=== PATIENT | female | born 1985 | race African-American/Black ===

== ENCOUNTER 2018-07-08 19:27 | Emergency (ER) | payer MEDICAID ==
[~2018-07-08] VITALS: Ht 180.3 cm; Wt 86.2 kg
[2018-07-08 19:45] VITALS: BP 127/82
[2018-07-09] MEDS ORDERED: IBUPROFEN 600 MG TAB PO ONE (00:15)
[2018-07-09] MEDS ORDERED: HYDROcodone-ACET 5/325MG TAB PO ONE (00:15)
== END 2018-07-09 00:23 | disposition home or self-care (01) ==
LOC: ER 19:27
DX: S90.112A Contusion of left great toe without damage to nail, initial encounter (principal); W01.0XXA Fall on same level from slipping, tripping and stumbling without subsequent striking against object, initial encounter; Y93.89 Activity, other specified; Y92.89 Other specified places as the place of occurrence of the external cause; Y99.8 Other external cause status
CPT/HCPCS: 73630

== ENCOUNTER 2018-08-21 00:44 | Emergency (ER) | payer MEDICAID ==
[~2018-08-21] VITALS: Ht 170.2 cm; Wt 79.4 kg
[2018-08-21 02:51] LABS: Basophils # (auto) 0 uL; Basophils % (auto) 0.5 % (0.0-2.0); Eosinophils # (auto) 0.3 uL; Hematocrit 36.4 % (36.0-46.0); Lymphocytes # (auto) 4.2 uL; Lymphocytes % (auto) 52.3 % (10.0-50.0); Mean Corpuscular Hemoglobin 28.5 pg (28.0-32.0); Mean Corpuscular Volume 86.2 fL (80.0-100.0); Monocytes # (auto) 0.5 uL; Monocytes % (auto) 6.6 % (0.0-12.0); Neutrophils % (auto) 36.6 % (37.0-80.0); Platelet Count (auto) 290 10^3/uL (140-450); Red Blood Cells 4.23 10^6/uL (4.0-5.20); Red Cell Distribution Width 16.4 % (11.8-14.3); White Blood Cell 8.1 10^3/uL (4.4-10.8)
[2018-08-21 03:09] LABS: Albumin 3.3 g/dL (3.4-5.0); Calcium 8.4 mg/dL (8.5-10.1); Potassium 3.7 mmol/L (3.5-5.1)
[2018-08-21 03:11] LABS: BUN/Creatinine Ratio 10.2; Bilirubin, Total 0.1 mg/dL (0.2-1.0); Total Protein 7.9 g/dL (6.4-8.2)
[2018-08-21 04:57] LABS: Urine Bacteria FEW /hpf (None Seen); Urine Blood TRACE /uL (Negative); Urine Mucus FEW (None Seen); Urine Specific Gravity 1.032 (1.001-1.035); Urine WBC 10 /hpf (0 - 5)
[2018-08-21 05:55] VITALS: BP 108/83
== END 2018-08-21 06:10 | disposition left against medical advice (07) ==
LOC: ER 00:46
DX: R10.9 Unspecified abdominal pain (principal); Z53.21 Procedure and treatment not carried out due to patient leaving prior to being seen by health care provider
CPT/HCPCS: 36415; 80053; 81001; 81025; 84702; 85025

== ENCOUNTER 2018-10-05 20:06 | Emergency (ER) | payer MEDICAID ==
[~2018-10-05] VITALS: Ht 170.2 cm; Wt 104.3 kg
[2018-10-05 23:55] VITALS: BP 107/69
[2018-10-06] MEDS ORDERED: cefTRIAXone SOD 1,000 MG VL IM ONE (00:30)
== END 2018-10-06 01:34 | disposition home or self-care (01) ==
LOC: ER 20:06
DX: N61.1 Abscess of the breast and nipple (principal)
CPT/HCPCS: 10060; 96372; 99283; C1887; J0696

== ENCOUNTER 2018-10-07 00:34 | Emergency (ER) | payer MEDICAID ==
[~2018-10-07] VITALS: Ht 170.2 cm; Wt 99.8 kg
[2018-10-07 01:06] VITALS: BP 110/64
== END 2018-10-07 04:48 | disposition left against medical advice (07) ==
LOC: ER 00:37
DX: Z48.01 Encounter for change or removal of surgical wound dressing (principal); Z53.21 Procedure and treatment not carried out due to patient leaving prior to being seen by health care provider

== ENCOUNTER 2018-10-12 01:51 | Emergency (ER) | payer SELFPAY ==
[~2018-10-12] VITALS: Ht 170.2 cm; Wt 113.4 kg
[2018-10-12] MEDS ORDERED: cefTRIAXone SOD 1,000 MG VL IM ONE (04:00)
[2018-10-12] MEDS ORDERED: DexAMETHasone SOD PHOS 10MG/1ML VIAL INJ IM ONE (04:00)
[2018-10-12 04:07] VITALS: BP 105/77
== END 2018-10-12 04:38 | disposition home or self-care (01) ==
LOC: ER 01:58
DX: N61.1 Abscess of the breast and nipple (principal)
CPT/HCPCS: 96372; 99283; J0696; J1100

== ENCOUNTER 2019-12-16 22:55 | Inpatient (IN) | payer MEDICAID, OTHER ==
[~2019-12-16] VITALS: Ht 170.2 cm; Wt 106.0 kg
[2019-12-16 23:30] LABS: Basophils # (auto) 0.1 10 ^3/uL (0-0.2); Basophils % (auto) 0.7 % (0.0-2.0); Eosinophils # (auto) 0.3 10 ^3/uL (0-0.8); Eosinophils % (auto) 2.7 % (0.0-7.0); Hematocrit 39.1 % (36.0-46.0); Hemoglobin 12.6 g/dL (12.2-16.2); Lymphocytes # (auto) 4.1 10 ^3/uL (0.4-5.4); Lymphocytes % (auto) 40.3 % (10.0-50.0); Mean Corpuscular Hemoglobin 27.5 pg (28.0-32.0); Mean Corpuscular Hgb Conc. 32.3 g/dL (32.0-36.0); Mean Corpuscular Volume 85.1 fL (80.0-100.0); Monocytes # (auto) 0.7 10 ^3/uL (0-1.3); Monocytes % (auto) 6.8 % (0.0-12.0); Neutrophils # (auto) 5.1 10 ^3/uL (1.6-8.6); Neutrophils % (auto) 49.5 % (37.0-80.0); Nucleated Red Blood Cells % 0.1 %; Platelet Count (auto) 340 10^3/uL (140-450); Red Cell Distribution Width 16.5 % (11.8-14.3); White Blood Cell 10.3 10^3/uL (4.4-10.8)
[2019-12-16 23:42] LABS: Albumin 3.5 g/dL (3.4-5.0); Calcium 8.4 mg/dL (8.5-10.1); Potassium 3.6 mmol/L (3.5-5.1)
[2019-12-16 23:45] LABS: BUN/Creatinine Ratio 8.8; Bilirubin, Total 0.1 mg/dL (0.2-1.0)
[2019-12-16 23:49] LABS: Urine Bacteria FEW /hpf (None Seen); Urine Blood 3+ /uL (Negative); Urine Mucus MODERATE (None Seen); Urine WBC 45 /hpf (0 - 5)
[2019-12-17] MEDS ORDERED: SODIUM CHLORIDE 0.9% 1,000 ML IV ONE ×2 (00:30→02:00)
[2019-12-17] MEDS ORDERED: ONDANSETRON HCL 4 MG/2 ML VIAL IV ONE (00:30)
[2019-12-17] MEDS ORDERED: MORPHINE SULFATE 4 MG/ML SYR/VIAL IV ONE (00:30)
[2019-12-17] MEDS ORDERED: PIPERACILLIN-TAZOB 3.375GM 100 ML IV ONE (02:00)
[2019-12-17] MEDS ORDERED: MORPHINE SULF INJ 2 MG/ML SYRINGE 1ML IV ONE (02:15)
[2019-12-17] MEDS ORDERED: cefTRIAXone 1GM/50ML D5W 50 ML IV ONE (02:45)
--- NOTE | 2019-12-17 04:05 | NUR ---
MS admit from [facility]UL[facility] RODRIGUE[facility] admitted to tele/MS after SBAR received. Patient oriented to Ehsan Antoine, primary RN, unit, room, bed, and unit policies regarding patient care and visiting hours. Patient weighed by bedscale and encouraged to call if they need something. All questions and concerns addressed, patient verbalized understanding.
[2019-12-17 04:10] VITALS: BP 110/71
[2019-12-17] MEDS: SODIUM CHLORIDE 0.9% 1,000 ML IV SCH ×2 (04:15→15:50)
[2019-12-17 04:30] VITALS: BP 110/71
--- NOTE | 2019-12-17 04:53 | NUR ---
PEPPER SPRAY PATIENT SURRENDERED PINK PEPPER SPRAY. PEPPER SPRAY WAS COLLECTED AND DOCUMENTED AND PICKED UP BY RN ANGIOGRAPHY ALTHEA.
[2019-12-17] MEDS: metroNIDAZOLE 500MG/100ML 100 ML IV SCH ×3 (06:13→21:01)
[2019-12-17 06:54] LABS: INR 1.07 (0.9-1.15); Partial Thromboplastin Time 30.8 sec (23.0-31.2)
[2019-12-17 07:03] LABS: Calcium 7.9 mg/dL (8.5-10.1); Potassium 3.8 mmol/L (3.5-5.1)
[2019-12-17 07:05] LABS: BUN/Creatinine Ratio 6.3
--- NOTE | 2019-12-17 07:50 | NUR ---
Opening Shift Note Assumed care of patient, awake and alert. No S/S of distress/SOB or pain. Instructed on POC and to call for assist PRN, will continue to monitor for changes Q1hr and PRN. Fall precautions in place per safety protocol.
[2019-12-17 09:26] VITALS: BP 100/67
[2019-12-17] MEDS: cefTRIAXone 1GM/50ML D5W 50 ML IV SCH (09:59)
[2019-12-17] MEDS: PANTOPRAZOLE 40 MG/10 ML VIAL INJ IV SCH (10:00)
[2019-12-17] MEDS ORDERED: HYDROcodone-ACET 5/325MG TAB PO PRN (11:45)
[2019-12-17] MEDS ORDERED: POVIDONE IODINE 10 % TOPICAL OINT 30GM TOP ONE (12:12)
[2019-12-17] MEDS ORDERED: MEPERIDINE HCL (50 MG/ML) 1 ML VIAL ONE (12:44)
[2019-12-17] MEDS ORDERED: MIDAZOLAM HCL 1MG/1ML-2 ML VIAL ONE (12:44)
[2019-12-17] MEDS ORDERED: fentaNYL CITRATE 100 MCG/2 ML VL ONE (12:44)
[2019-12-17] MEDS ORDERED: HYDROmorphone HCL 2 MG/ML VL IV PRN ×3 (12:45→13:45)
[2019-12-17] MEDS ORDERED: MORPHINE SULFATE 4 MG/ML SYR/VIAL IV PRN ×2 (12:45→13:45)
[2019-12-17] MEDS ORDERED: ePHEDrine SULFATE 50 MG/ML AMP IV PRN ×2 (12:45→13:45)
[2019-12-17] MEDS ORDERED: MIDAZOLAM HCL 1MG/1ML-2 ML VIAL IV PRN ×2 (12:45→13:45)
[2019-12-17] MEDS ORDERED: LABETALOL HCL 5 MG/ML 4ML SYRINGE IV PRN ×2 (12:45→13:45)
[2019-12-17] MEDS ORDERED: ONDANSETRON HCL 4 MG/2 ML VIAL IV PRN ×2 (12:45→13:45)
[2019-12-17] MEDS ORDERED: DexAMETHasone SOD PHOS 10MG/1ML VIAL INJ ONE (12:51)
[2019-12-17] MEDS ORDERED: PROPOFOL 10 MG/ML 20 ML IV ONE (12:51)
[2019-12-17] MEDS ORDERED: ROCURONIUM 10MG/ML 10ML VIAL IV ONE (13:09)
[2019-12-17] MEDS ORDERED: ONDANSETRON HCL 4 MG/2 ML VIAL ONE (13:09)
[2019-12-17] MEDS ORDERED: METOCLOPRAMIDE HCL 5MG/ml INJ 2ml VIAL IV PRN (13:45)
[2019-12-17 15:15] VITALS: BP 120/74
--- NOTE | 2019-12-17 15:15 | NUR ---
Patient back in room SP Lap Appy. Patient resting in bed, no distress, sob, or pain noted at this time. 3 medial incision noted in abdomen, dressing, clean, dry, and intact.
[2019-12-17 17:00] VITALS: BP 104/68
[2019-12-17] MEDS: MORPHINE SULFATE 4 MG/ML SYR/VIAL IV PRN (20:27)
[2019-12-17] MEDS: ONDANSETRON HCL 4 MG/2 ML VIAL IV PRN (20:57)
[2019-12-17 21:27] VITALS: BP 113/69
[2019-12-18] MEDS: MORPHINE SULFATE 4 MG/ML SYR/VIAL IV PRN ×2 (04:17→09:27)
[2019-12-18] MEDS: ONDANSETRON HCL 4 MG/2 ML VIAL IV PRN (04:17)
[2019-12-18 05:02] VITALS: BP 105/59
[2019-12-18] MEDS: SODIUM CHLORIDE 0.9% 1,000 ML IV SCH ×2 (05:17→18:25)
[2019-12-18 06:23] LABS: Basophils # (auto) 0 10 ^3/uL (0-0.2); Basophils % (auto) 0.1 % (0.0-2.0); Eosinophils # (auto) 0 10 ^3/uL (0-0.8); Eosinophils % (auto) 0.1 % (0.0-7.0); Hemoglobin 10.8 g/dL (12.2-16.2); Lymphocytes % (auto) 26.6 % (10.0-50.0); Mean Corpuscular Hemoglobin 27.7 pg (28.0-32.0); Mean Corpuscular Hgb Conc. 32.6 g/dL (32.0-36.0); Mean Corpuscular Volume 84.7 fL (80.0-100.0); Monocytes # (auto) 0.4 10 ^3/uL (0-1.3); Monocytes % (auto) 5.8 % (0.0-12.0); Neutrophils # (auto) 5.1 10 ^3/uL (1.6-8.6); Neutrophils % (auto) 67.4 % (37.0-80.0); Platelet Count (auto) 264 10^3/uL (140-450); Red Blood Cells 3.89 10^6/uL (4.0-5.20); Red Cell Distribution Width 16.3 % (11.8-14.3); White Blood Cell 7.6 10^3/uL (4.4-10.8)
[2019-12-18] MEDS: metroNIDAZOLE 500MG/100ML 100 ML IV SCH ×3 (06:27→21:02)
[2019-12-18 06:44] LABS: Albumin 2.9 g/dL (3.4-5.0); Calcium 8.4 mg/dL (8.5-10.1); Potassium 3.7 mmol/L (3.5-5.1)
[2019-12-18 06:49] LABS: BUN/Creatinine Ratio 6.1; Bilirubin, Total 0.3 mg/dL (0.2-1.0); Total Protein 6.7 g/dL (6.4-8.2)
[2019-12-18 08:00] VITALS: BP 101/72
[2019-12-18 09:00] VITALS: BP 101/72
[2019-12-18] MEDS: cefTRIAXone 1GM/50ML D5W 50 ML IV SCH (09:26)
[2019-12-18] MEDS: PANTOPRAZOLE 40 MG/10 ML VIAL INJ IV SCH (09:26)
--- NOTE | 2019-12-18 11:08 | NUR ---
Nutrition Consult for Food and Drug interaction Pt is on metronidazole, spoke with pt about the importance of avoiding alcohol consumption while prescribed and taking medicine. Provided pt with food and drug interaction sheet in pt dc binder.
--- NOTE | 2019-12-18 12:10 | NUR ---
Dr Lau bedside with patient discussing plan of care. Addendum: 12/18/19 at 1317 by KAMARI LEVI RN RN Received call from pharmacy wanting clarification of pain medications. Clarification received from Dr Lau. Informed Pharmacy and carried out orders.
[2019-12-18] MEDS ORDERED: HYDROmorphone HCL 2 MG/ML VL IV PRN (12:15)
[2019-12-18 13:00] VITALS: BP 103/66
[2019-12-18 16:45] VITALS: BP 122/80
[2019-12-18] MEDS: MORPHINE SULF INJ 2 MG/ML SYRINGE 1ML IV PRN ×2 (18:07→23:50)
[2019-12-18 22:00] VITALS: BP 120/82
[2019-12-19 05:00] VITALS: BP 124/79
[2019-12-19] MEDS: MORPHINE SULF INJ 2 MG/ML SYRINGE 1ML IV PRN ×2 (05:11→10:34)
[2019-12-19] MEDS: metroNIDAZOLE 500MG/100ML 100 ML IV SCH ×2 (05:11→13:53)
[2019-12-19] MEDS: SODIUM CHLORIDE 0.9% 1,000 ML IV SCH (05:11)
[2019-12-19 06:14] LABS: Basophils # (auto) 0.1 10 ^3/uL (0-0.2); Basophils % (auto) 0.9 % (0.0-2.0); Eosinophils # (auto) 0.3 10 ^3/uL (0-0.8); Eosinophils % (auto) 4.2 % (0.0-7.0); Hematocrit 33.8 % (36.0-46.0); Hemoglobin 10.8 g/dL (12.2-16.2); Lymphocytes # (auto) 3.6 10 ^3/uL (0.4-5.4); Lymphocytes % (auto) 54.3 % (10.0-50.0); Mean Corpuscular Hemoglobin 27.3 pg (28.0-32.0); Mean Corpuscular Hgb Conc. 31.9 g/dL (32.0-36.0); Mean Corpuscular Volume 85.4 fL (80.0-100.0); Monocytes # (auto) 0.4 10 ^3/uL (0-1.3); Monocytes % (auto) 6.1 % (0.0-12.0); Neutrophils # (auto) 2.3 10 ^3/uL (1.6-8.6); Neutrophils % (auto) 34.5 % (37.0-80.0); Nucleated Red Blood Cells % 0.1 %; Platelet Count (auto) 280 10^3/uL (140-450); Red Blood Cells 3.96 10^6/uL (4.0-5.20); Red Cell Distribution Width 16.3 % (11.8-14.3); White Blood Cell 6.6 10^3/uL (4.4-10.8)
[2019-12-19 06:42] LABS: BUN/Creatinine Ratio 5.2; Calcium 8.1 mg/dL (8.5-10.1)
--- NOTE | 2019-12-19 07:30 | NUR ---
Opening Shift Note Assumed care of patient, who is alert and oriented x4. Respirations are even and unlabored. No S/S of distress/SOB or pain. S/p laparoscopic appendectomy with Dr. Reyna. Noted 3 abdominal incisions, dressings C/D/I with abdominal binder in place. Bed is low, locked with 2x side rails up. Call light is within reach. Instructed on POC and to call for assist PRN, will continue to monitor for changes Q1hr and PRN.
[2019-12-19 09:00] VITALS: BP 116/73
[2019-12-19] MEDS: cefTRIAXone 1GM/50ML D5W 50 ML IV SCH (10:33)
[2019-12-19] MEDS: PANTOPRAZOLE 40 MG/10 ML VIAL INJ IV SCH (10:33)
[2019-12-19 13:00] VITALS: BP 119/79
[2019-12-19 14:31] VITALS: BP 119/79
--- NOTE | 2019-12-19 15:34 | NUR ---
Discharge instructions given as ordered. Encourage to follow up with PMD as instructed. Provided patient with information to Dr. Reyna's office and encouraged patient to schedule a follow up appointment.All questions and concerns addressed. Patient verbalized understanding. IV removed with catheter intact, pressure dressing applied. Patient taken to taxi vehicle via wheelchair with all personal belongings, accompanied by staff. No distress noted at time of departure.
== END 2019-12-19 15:35 | disposition home or self-care (01) | DRG 234 ==
LOC: ER 22:57 → OVERFLOW 22:58 → WEST WING 12-17 04:05
PROVIDERS: ADMIT Nurse Practitioner; ATTEND Internal Medicine
PROC: 0DTJ4ZZ Resection of Appendix, Percutaneous Endoscopic Approach (ICD-10-PCS; principal; 2019-12-17 12:36)
DX: K35.80 Unspecified acute appendicitis (principal); N39.0 Urinary tract infection, site not specified; E66.01 Morbid (severe) obesity due to excess calories; F17.200 Nicotine dependence, unspecified, uncomplicated; Z20.828 Contact with and (suspected) exposure to other viral communicable diseases; Z88.0 Allergy status to penicillin; E28.2 Polycystic ovarian syndrome; Z82.0 Family history of epilepsy and other diseases of the nervous system; Z68.34 Body mass index [BMI] 34.0-34.9, adult
CPT/HCPCS: 36415; 74176; 80048; 80053; 81001; 82150; 83690; 84702; 85025; 85610; 85730; 86850; 86900; 86901; 87040; 87086; 87426; 96361; 96365; 96375; 96376; C9113; G0378; J0696; J1100; J2250; J2405; J2543; J2704; J3490